=== PATIENT | male | born 1995 | race Caucasian/White ===

== ENCOUNTER 2018-05-14 19:47 | Emergency (ER) | payer OTHER ==
[~2018-05-14] VITALS: Ht 177.8 cm; Wt 68.0 kg
[2018-05-15] MEDS ORDERED: BICARSIM FORTE125 MG PO (04:08)
[2018-05-15] MEDS ORDERED: PEPCID40 MG PO (04:08)
[2018-05-15] MEDS ORDERED: ZOFRAN ODT4 MG PO (04:08)
== END 2018-05-15 04:25 | disposition home or self-care (01) ==
LOC: ER 19:47
DX: B34.9 Viral infection, unspecified (principal); K59.09 Other constipation; K29.60 Other gastritis without bleeding